=== PATIENT | female | born 1995 | race Caucasian/White ===

== ENCOUNTER 2022-02-26 18:50 | Emergency (ER) | payer OTHER, SELFPAY ==
--- NOTE | 2022-02-26 19:06 | ED.EYEPROB ---
HPI - Eye Problem General Chief complaint: Eye Problems Stated complaint: Lt Eye Irritation Time Seen by Provider: 02/26/22 19:10 Source: patient Mode of arrival: ambulatory Limitations: no limitations History of Present Illness HPI Narrative: Ms. Song is a 26-year-old female patient presenting to clinic today with left eye irritation and discharge. She reports that her daughter had conjunctivitis 2 days ago and her son is also having symptoms of conjunctivitis today in the clinic. She reports a red swollen and itchy left eye with yellow discharge. No known eye injury. She denies any fever, chills, or runny nose. Related Data Home Medications Medication Instructions Recorded Confirmed No Home Medications 02/26/22 02/26/22 Allergies Allergy/AdvReac Type Severity Reaction Status Date / Time gluten Allergy Diarrhea Verified 02/26/22 19:07 Penicillins Allergy Hives Verified 02/26/22 19:07 Review of Systems Review of Systems: Pertinent positives per HPI. Patient denies any fever, chills, rash, headache, visual changes, dizziness, cough, runny nose, sore throat, shortness of breath, chest pain, palpitations, nausea, vomiting, diarrhea, constipation, abdominal pain, or any urinary issues. PMFSH Comments At the time of my signature, I reviewed and agree with the nursing past medical, surgical, social, and family history. There is no relevant family history pertinent to the patient complaint. Exam Narrative: General: Well-developed, well nourished, in no apparent distress Head: Normocephalic, atraumatic Eyes: Pupils equally round and reactive to light bilaterally, EOM intact, right sclera and conjunctive clear, left sclera and conjunctive a red and injected with yellow mucopurulent discharge, mild left eyelid swelling, right lids normal Ears: TMs intact and clear, ear canals clear, no drainage, grossly hearing normal. Nose: Nares patent, no discharge, no inflammation, no sinus tenderness. Mouth: Oropharynx without lesions or masses, good dentition, MMM. Neck: Supple, trachea midline, no enlargement of anterior or posterior cervical nodes, no thyroid masses or goiter palpable. Cardio: Regular rate and rhythm, s1 and s2 normal, no murmur appreciated. Resp: Clear to auscultation bilaterally anteriorly and posteriorly, no rhonchi, rales, wheezing or rubs Course Course Emergency Course: Portions of this record may have been created with voice recognition software. Level of Care: Express Care Visit Vital Signs Vital signs: Vital signs reviewed MDM - Eye Problem MDM Narrative Medical decision making narrative: The time of visit patient is resting comfortably on exam table. Patient has left eye redness with mucopurulent discharge. Daughter and son both are diagnosed with acute conjunctivitis. Will treat with a prescription of polymyxin. Supportive measures discussed with patient and she voiced understanding. Discharge Plan Discharge Clinical Impression: Bacterial conjunctivitis Patient Disposition: Home, Self-Care Condition: Stable Instructions: Antibiotic Form, Conjunctivitis (ED) Additional Instructions: Good handwashing techniques May use warm moist cloth to clear eye drainage Tylenol/Motrin as needed for pain Polymyxin drops as prescribed-no longer considered contagious after 24 hours of use of antibiotic Follow-up with your PCP in 3 to 5 days if symptoms persist Prescriptions: New polymyxin B sulf-trimethoprim 10,000 unit- 1 mg/mL drops 1 drp LEFT EYE Q3H 7 Days Qty: 10 RF: 0 No Action No Home Medications RF: 0 Follow-up/Referrals: [facility], [Primary Care Provider] - Time of Disposition: 19:11 Quality NIHSS Nursing Documentation ED NIHSS nursing documentation: reviewed/agree
[2022-02-26 19:09] VITALS: BP 126/87; PULSE 81; RESP 16; TEMP 36.7; O2SAT 100
== END 2022-02-26 19:20 | disposition home or self-care (01) ==
PROVIDERS: Emergency Provider Nurse Practitioner Family
DX: H10.9 Unspecified conjunctivitis (principal); K90.0 Celiac disease
CPT/HCPCS: 99203; G0463

== ENCOUNTER 2022-03-19 12:46 | Emergency (ER) | payer OTHER, SELFPAY ==
--- NOTE | 2022-03-19 13:41 | ED.GENADULT ---
HPI - General Adult General Chief complaint: Ear Stated complaint: lt ear pain Time Seen by Provider: 03/19/22 13:41 Source: patient Mode of arrival: ambulatory Limitations: no limitations History of Present Illness HPI narrative: 18-year-old female patient presents to the [facility] with complaints of left ear pain for the past 2 days since traveling in an airplane. Patient denies fevers, body aches or chills. Denies any drainage from the left ear. Patient states she feels like her left ear is underwater. Related Data Home Medications Medication Instructions Recorded Confirmed levonorgestrel [Mirena] 1 device INTRAUTERINE ONCE 03/19/22 03/19/22 Allergies Allergy/AdvReac Type Severity Reaction Status Date / Time gluten Allergy Diarrhea Verified 03/19/22 13:54 Penicillins Allergy Hives Verified 03/19/22 13:54 Sulfa (Sulfonamide Allergy Unknown Verified 03/19/22 13:54 Antibiotics) Review of Systems Review of Systems: CONSTITUTIONAL: Denies fever, chills, or sweats. EYES: Denies visual changes, redness, or discharge. ENT: Denies rhinorrhea, congestion, sore throat, positive left otalgia. CARDIOVASCULAR: Denies chest pain, palpitations, or edema. RESPIRATORY: Denies cough or dyspnea. GASTROINTESTINAL: Denies abdominal pain, nausea, vomiting, or diarrhea. GENITOURINARY: Denies dysuria or hematuria. SKIN: Denies rash or itching. MUSCULOSKELETAL: Denies back pain, joint pain, or myalgia. NEUROLOGIC: Denies headache, numbness, or weakness. PSYCHIATRIC: Denies anxiety or depression. [facility] Past Medical History Medical History (Updated 03/19/22 @ 14:09 by SHRAVAN Christina) No significant past medical history Comments At the time of my signature I agree with nursing past medical history, surgical, social, and family history. There is no relevant family history pertinent to the presenting complaint. Exam Narrative: GENERAL: Well-appearing, well-nourished, and in no acute distress. HEAD: Normocephalic, atraumatic. EYES: PERRLA and EOMI. ENT: Nares clear, no rhinorrhea or epistaxis. Mucous membranes moist. Fluid noted behind the left tympanic membrane. No erythema or foreign bodies noted to the canal. NECK: Supple. No lymphadenopathy CHEST: Clear to auscultation. No respiratory distress. HEART: Regular rate and rhythm. No murmur heard. Normal peripheral pulses. ABDOMEN: Soft, nontender, nondistended, normal active bowel sounds. EXTREMITIES: Normal range of motion. No edema. SKIN: Warm, dry, no rash. NEURO: No focal deficits. Alert and oriented x3. Course Course Level of Care: Express Care Visit Vital Signs Vital signs: Vital Signs Temperature 36.6 C 03/19/22 13:43 Pulse Rate 69 03/19/22 13:43 Respiratory Rate 18 03/19/22 13:43 Blood Pressure 150/90 H 03/19/22 13:43 Pulse Oximetry 100 03/19/22 13:43 Temperature 36.6 C 03/19/22 13:43 Pulse Rate 69 03/19/22 13:43 Respiratory Rate 18 03/19/22 13:43 Blood Pressure 150/90 H 03/19/22 13:43 Pulse Oximetry 100 03/19/22 13:43 Vital signs reviewed The patient has been informed that they may have pre-hypertension or Hypertension based on a BP reading in the department. I recommend that the patient call the primary care provider listed on their discharge instructions or a physician of their choice this week to arrange follow up for further evaluation of possible pre-hypertension or Hypertension Medical Decision Making Differential Diagnosis Differential Diagnosis: Differential diagnosis: Otitis media, otitis externa, perforated TM, infection of the outer ear, foreign body or cerumen impaction, ruptured TM, acute mastoiditis, ligament otitis externa, dehydration, pneumonia, sepsis, dental or intraoral infection, TMJ dysfunction Plan of care for patient is discharged home with an antihistamine and a nasal spray to help drain the fluid away from the tympanic membrane. Patient is aware the plan of care denies any other question
[2022-03-19 13:43] VITALS: BP 150/90; PULSE 69; RESP 18; TEMP 36.6; O2SAT 100
== END 2022-03-19 14:10 | disposition home or self-care (01) ==
PROVIDERS: Emergency Provider Nurse Practitioner Family
DX: H73.892 Other specified disorders of tympanic membrane, left ear (principal)
CPT/HCPCS: 99213; G0463

== ENCOUNTER 2022-04-14 11:11 | Emergency (ER) | payer OTHER, SELFPAY ==
[2022-04-14 11:32] VITALS: BP 121/80; PULSE 68; RESP 18; TEMP 36.6; O2SAT 100
--- NOTE | 2022-04-14 11:52 | ED.EYEPROB ---
HPI - Eye Problem General Chief complaint: Eye Problems Stated complaint: bilateral eye irritation Time Seen by Provider: 04/14/22 11:40 Source: patient Mode of arrival: ambulatory Limitations: no limitations History of Present Illness HPI Narrative: Ms. Song is a 26-year-old female patient presenting to the clinic today with complaints of eye irritation and drainage x1 to 2 days. She reports that her children both are diagnosed with conjunctivitis and are currently on medic medication for this. She reports that her eyes are itching and she woke up with some green eye discharge this morning. She denies any fever or chills. chief complaint: eye redness Related Data Home Medications Medication Instructions Recorded Confirmed levonorgestrel 20 mcg/24 hours (7 1 device intrauterine ONCE 03/19/22 04/14/22 yrs) 52 mg intrauterine device (Mirena) Allergies Allergy/AdvReac Type Severity Reaction Status Date / Time gluten Allergy Diarrhea Verified 04/14/22 12:03 Penicillins Allergy Hives Verified 04/14/22 12:03 Sulfa (Sulfonamide Allergy Unknown Verified 04/14/22 12:03 Antibiotics) Review of Systems Review of Systems: Pertinent positives per HPI. Patient denies any fever, chills, rash, headache, visual changes, dizziness, cough, runny nose, sore throat, shortness of breath, chest pain, palpitations, nausea, vomiting, diarrhea, constipation, abdominal pain, or any urinary issues. [facility] Past Medical History Medical History No significant past medical history Comments At the time of my signature, I reviewed and agree with the nursing past medical, surgical, social, and family history. There is no relevant family history pertinent to the patient complaint. Exam Narrative: General: Well-developed, well nourished, in no apparent distress Head: Normocephalic, atraumatic Eyes: Pupils equally round and reactive to light bilaterally, EOM intact, sclera and conjunctive injected/red bilateral, no discharge, lids normal Ears: TMs intact and clear, ear canals clear, no drainage, grossly hearing normal. Nose: Nares patent, no discharge, no inflammation, no sinus tenderness. Mouth: Oropharynx without lesions or masses, good dentition, MMM. Neck: Supple, trachea midline, no enlargement of anterior or posterior cervical nodes, no thyroid masses or goiter palpable. Cardio: Regular rate and rhythm, s1 and s2 normal, no murmur appreciated. Resp: Clear to auscultation bilaterally anteriorly and posteriorly, no rhonchi, rales, wheezing or rubs Course Course Emergency Course: Portions of this record may have been created with voice recognition software. Level of Care: Express Care Visit Vital Signs Vital signs: Vital Signs Temperature 36.6 C 04/14/22 11:32 Pulse Rate 68 04/14/22 11:32 Respiratory Rate 18 04/14/22 11:32 Blood Pressure 121/80 04/14/22 11:32 Pulse Oximetry 100 04/14/22 11:32 Oxygen Delivery Room Air 04/14/22 11:32 Temperature 36.6 C 04/14/22 11:32 Pulse Rate 68 04/14/22 11:32 Respiratory Rate 18 04/14/22 11:32 Blood Pressure 121/80 04/14/22 11:32 Pulse Oximetry 100 04/14/22 11:32 Oxygen Delivery Room Air 04/14/22 11:32 Vital signs reviewed MDM - Eye Problem MDM Narrative Medical decision making narrative: At the time of visit patient is resting comfortably on the exam table. I suspect that the patient has bilateral early conjunctivitis and we will go ahead and treat with a course of TobraDex. Supportive measures were discussed and patient voiced understanding of discharge instructions and agrees to treatment plan. Differential Diagnosis Differential diagnosis: Likely corneal abrasion, conjunctivitis, acute iritis, periorbital cellulitis, subconjunctival hemorrhage and corneal ulcer Discharge Plan Discharge Clinical Impression: Bilateral conjunctivitis Patient Disposition: [facility]
== END 2022-04-14 12:09 | disposition home or self-care (01) ==
PROVIDERS: Emergency Provider Nurse Practitioner Family
DX: H10.9 Unspecified conjunctivitis (principal); K90.0 Celiac disease
CPT/HCPCS: 99213; G0463